=== PATIENT | female | born 1960 | race African-American/Black ===

== ENCOUNTER 2016-12-17 08:38 | Day surgery (SDC) | payer BC, OTHER ==
[2016-12-16 12:11] VITALS: BMI 34.2
[2016-12-17 09:13] LABS: MCH 28.5 pg (25.7-33.7); MCHC 32.4 g/dl (32.0-36.0); MEAN CELL VOLUME 87.7 fl (80-96); MEAN PLT VOLUME 8.4 fl (7.5-11.1); PLATELET COUNT 234 K/MM3 (134-434); RDW 13.1 % (11.6-15.6)
[2016-12-17] MEDS ORDERED: MIDAZOLAM HCL 2 MG/2 ML SINGLE DOSE VIAL ONE ×2 (10:26)
[2016-12-17] MEDS ORDERED: IBUPROFEN 400 MG TABLET (FP) PO PRN (10:39)
[2016-12-17] MEDS ORDERED: ACETAMINOPHEN 325 MG TABLET (FP) PO PRN (10:39)
[2016-12-17] MEDS ORDERED: ONDANSETRON 4 MG/2 ML VIAL IVPB PRN (10:39)
--- NOTE | 2016-12-17 10:47 | HP ---
Admitting History and Physical - Admission History of Present Illness: 56 yo postmenopausal woman with postmenopausal bleeding last year. She underwent an ultrasound which revealed a thickened endometrium suspicious of polyp. She opted for surgical management. She was supposed to have a hysteroscopy D&C last year but procedure was cancelled. She denies any recent PMB. History Source: Patient - Past Medical History Cardiovascular: No: HTN ...LMP Comment: postmenpausal ...: No - Past Surgical History Additional Past Surgical History: Eye surgery CD - Smoking History Smoking history: Never smoked Have you smoked in the past 12 months: No Aproximately how many cigarettes per day: 0 - Alcohol/Substance Use Hx Alcohol Use: Yes (rarely) - Social History History of Recent Travel: No Home Medications - Allergies Allergies/Adverse Reactions: Allergies Allergy/AdvReac Type Severity Reaction Status Date / Time No Known Allergies Allergy Verified 12/16/16 12:10 - Home Medications Home Medications: Ambulatory Orders Cyclobenzaprine HCl 10 mg PO PRN PRN 12/16/16 Ibuprofen 800 mg PO PRN PRN 12/16/16 Family Disease History - Family Disease History Family History: Denies Review of Systems - Review of Systems Constitutional: reports: No Symptoms Cardiovascular: reports: No Symptoms Respiratory: reports: No Symptoms Gastrointestinal: reports: No Symptoms Genitourinary: reports: No Symptoms Integumentary: reports: No Symptoms Endocrine: reports: No Symptoms Physical Examination Vital Signs: Vital Signs Temperature 98.1 F 12/17/16 09:09 Pulse Rate 70 12/17/16 09:09 Respiratory Rate 18 12/17/16 09:09 Blood Pressure O2 Sat by Pulse Oximetry (%) 99 12/17/16 09:12 Constitutional: Yes: Well Nourished, No Distress, Calm Cardiovascular: Yes: Regular Rate and Rhythm Respiratory: Yes: Regular, CTA Bilaterally Gastrointestinal: Yes: Normal Bowel Sounds, Soft Labs: CBC, BMP 12/17/16 08:52 Imaging - Results Ultrasound: Report Reviewed (A Gynecology Report was performed on [facility] on 11/27/2015. The exam was done to evaluate a history of Bleeding-Postmenopausal, Polyp-Cervical. The uterus was Anteverted and appears diffusely heterogenous. No focal masses are seen. The Uterus measured L-73mm W -39mm H-31mm with a volume of 46 cc. The Endometrium measured 6.90 mm and is thickened with a cystic component. The right ovary measured L-19mm W-14mm H-14mm. The left ovary measured L-19mm W-18mm H-11mm. There were no adnexal masses or free fluid seen.), Other Assessment/Plan 56 yo PMB, endometrial polyp 1. Consents reviewed and signed, reviewed risks including infection, bleeding, damage to surrounding organs such as bowel, bladder, uterine perforation. Written consent obtained 2. SCDs for DVT prophylaxis 3. Will proceed to OR
[2016-12-17] MEDS ORDERED: SUCCINYLCHOLINE CHLORIDE 200 MG/10 ML VIAL ONE (10:49)
[2016-12-17] MEDS ORDERED: PROPOFOL 20 ML ONE ×4 (10:49)
[2016-12-17] MEDS ORDERED: ceFAZolin SODIUM 1 GM VIAL IVPB ONE (11:13)
[2016-12-17] MEDS ORDERED: PROMETHAZINE HCL 25 MG/1 ML VIAL IVPUSH PRN (11:32)
--- NOTE | 2016-12-17 11:35 | OP ---
Operative Note - Note: Operative Date: 12/17/16 Pre-Operative Diagnosis: postmenopausal bleeding, endometrial polyp Operation: hysteroscopy, dilation and curettage, polypectomy Findings: uterus sounded to 8 cm, uterine perforation noted, procedure aborted, large cervical polyp Post-Operative Diagnosis: Same as Pre-op Surgeon: Dori Rangel Anesthesiologist/SAMPLE PATTERNMAKER: Wilver Peguero Anesthesia: MAC Estimated Blood Loss (mls): 1 Drains, Volume Out (mls): 200 (fluid deficit) Fluid Volume Replaced (mls): 700 Operative Report Dictated: Yes
[2016-12-17] MEDS ORDERED: LACTATED RINGERS SOLUTION 1,000 ML IV SCH (11:45)
[2016-12-17 12:04] LABS: MCH 28.3 pg (25.7-33.7); MCHC 32.2 g/dl (32.0-36.0); MEAN CELL VOLUME 87.8 fl (80-96); MEAN PLT VOLUME 8.3 fl (7.5-11.1); PLATELET COUNT 201 K/MM3 (134-434); RDW 13.1 % (11.6-15.6)
[2016-12-17 13:07] VITALS: TEMP 97.4
--- NOTE | 2016-12-17 13:23 | OP ---
DATE OF OPERATION: 12/17/2016 ATTENDING PHYSICIAN RESPONSIBLE TO SIGN REPORT: Katya Rangel MD PREOPERATIVE DIAGNOSIS: Endometrial polyp and postmenopausal bleeding. POSTOPERATIVE DIAGNOSIS: Endometrial polyp and postmenopausal bleeding. OPERATION: Hysteroscopy, dilation and curettage, and polypectomy. SURGEON: Katya Rangel MD ANESTHESIOLOGIST: Dr. Peguero ANESTHESIA: MAC. INTRAVENOUS FLUIDS GIVEN: 700 mL. ESTIMATED BLOOD LOSS: Less than 5 mL. FLUID DEFICIT: 200. INDICATIONS: Patient is a 56-year-old postmenopausal woman who presented with postmenopausal bleeding. She was found to have a large polyp extending into the endometrial canal. She was counseled regarding risks, benefits, alternatives, and complications of the procedure including infection, bleeding, damage to surrounding organs such as bowel, bladder, ureters. She expressed understanding and was brought to the operating room. DESCRIPTION OF PROCEDURE: When anesthesia was found to be adequate, patient was prepped and draped in a normal sterile fashion, placed in dorsal lithotomy position using Chip stirrups. A weighted speculum was placed into the posterior portion of the patients vagina. The anterior lip of the cervix was grasped using an Allis clamp. A large cervical polyp was noted, and the cervix was gently dilated to accommodate a size 17 Jayme dilator. Uterine sound revealed an 8-cm endometrial cavity. A hysteroscope was placed under direct visualization, and it was noted that a uterine perforation was noted. No bleeding was noted. Hysteroscopy was aborted. The cervical polyp was removed using polyp forceps and endocervical curetting was performed. All instruments were removed from the patients vagina. The patient was awakened from anesthesia and brought to the recovery room in stable condition. KATYA RANGEL M.D. [id number]
[2016-12-17 15:56] LABS: MCH 28.7 pg (25.7-33.7); MCHC 32.8 g/dl (32.0-36.0); MEAN CELL VOLUME 87.6 fl (80-96); MEAN PLT VOLUME 8.5 fl (7.5-11.1); PLATELET COUNT 200 K/MM3 (134-434); RDW 12.9 % (11.6-15.6); WHITE BLOOD COUNT 5.3 K/mm3 (4.0-10.0)
--- NOTE | 2016-12-17 16:43 | PN ---
Progress Note (short form) - Note Progress Note: Patient seen and examined at bedside. No complaints. Mild spotting, no pain. No nausea or vomiting. Voidings, passing flatus 12/17/16 12/17/16 12:45 13:00 Temperature 97.4 F L Pulse Rate 54 L Respiratory 20 Rate Blood Pressure 132/70 GEN: NAD CHEST: RRR,CTAB ABD: Soft, NT, ND PRIVATE PILOT: Scant VB Laboratory Tests 12/17/16 12/17/16 12/17/16 08:52 11:59 15:30 Hgb 13.0 12.3 12.1 Hct 40.1 38.1 37.1 56 yo s/p hysteroscopy, D&C/polypectomy, aborted secondary to uterine perforation, no signs of bleeding, no pain 1. Patient stable for DC home 2. Will give metronidazole PO BID x 7 d 3. No pain at this time 4. Will make close follow up in office 5. Precautions reviewed
[2016-12-17 17:31] VITALS: BP 146/90; PULSE 63
--- NOTE | 2016-12-18 13:02 | PATH ---
Surgical Pathology Report Patient Name: [facility]MINA [facility]. Rec. #: [id number] /Age/Gender: 1960 (Age: 56) / F Account: [id number] Location: [facility] SURGICAL Taken: 12/17/2016 Received: 12/17/2016 Reported: 12/18/2016 Physicians: Dori Rangel Specimen(s) Received A: ENDOCERVICAL CURETTINGS B: ENDOCERVICAL POLYP Clinical History Postmenopausal bleeding, endometrial polyp Final Diagnosis A. ENDOCERVIX, CURETTAGE: FRAGMENTS OF BENIGN ENDOCERVICAL TISSUE. SCANT FRAGMENTS OF BENIGN SQUAMOUS EPITHLIUM. FRAGMENTS OF BENIGN INACTIVE APPEARING ENDOMETRIUM. B. ENDOCERVICAL POLYP, POLYPECTOMY: BENIGN CERVICAL POLYP WITH MIXED ENDO- AND ECTOCERVICAL FEATURES. Electronically Signed Aaron Dugan M.D. Gross Description A. Received in formalin, labeled "endocervical curettings" is a 2.0 x 2.0 x 0.3 cm in aggregate site fragments of albright-pink soft tissue admixed with mucus and blood. The specimen is submitted in toto in one cassette. B. Resection formalin, labeled "cervical polyp" is a 2.1 x 1.2 x 0.3 cm polypoid fragment of albright-red tissue. Submitted entirely in one cassette. AF/12/17/2016 final/12/17/2016
== END 2016-12-17 17:33 | disposition home or self-care (01) ==
LOC: JASU-SURG 08:38
PROVIDERS: ATTEND Obstetrics & Gynecology
PROC: 0UB98ZX Excision of Uterus, Via Natural or Artificial Opening Endoscopic, Diagnostic (ICD-10-PCS; principal; 2016-12-17 10:30)
PROC: 0UDB8ZX Extraction of Endometrium, Via Natural or Artificial Opening Endoscopic, Diagnostic (ICD-10-PCS; 2016-12-17 10:30)
DX: N92.1 Excessive and frequent menstruation with irregular cycle (principal); N84.0 Polyp of corpus uteri
CPT/HCPCS: 36415; 85027; 88305-TC; 94760

== ENCOUNTER 2017-05-31 16:39 | Emergency (ER) | payer BC, OTHER ==
[2017-05-31 17:21] VITALS: BP 143/86; PULSE 61; TEMP 98.1; BMI 34.0
--- NOTE | 2017-05-31 18:13 | PDOC ---
History of Present Illness - General Chief Complaint: Headache Stated Complaint: HEADACHE Time Seen by Provider: 05/31/17 17:26 History Source: Patient Exam Limitations: No Limitations - History of Present Illness Initial Comments: 05/31/17 18:08 57 y/o female with c/o intermittent rt sided sharp pain x 6 months after she sustained a fall while standing in November. Pt states was going up steps when she missed the 1st step causing her fall backwards striking the cement. Pt denied LOC or dizziness following incident. Pt states motrin does alleviate the pain but concerned because sharp pain returns without aggravating factors. Pt states did not see her PMD for this but decided to come to the ED for evaluation and imaging. Pt states hx of cervical radiculopathy. Timing/Duration: reports: other (intermittent) Severity: Yes: mild Associated Symptoms: denies: vision changes Past History - Travel Traveled outside of the country in the last 30 days: No - Past Medical History Allergies/Adverse Reactions: Allergies Allergy/AdvReac Type Severity Reaction Status Date / Time No Known Allergies Allergy Verified 05/31/17 17:16 Home Medications: Ambulatory Orders Cyclobenzaprine HCl 10 mg PO PRN PRN 12/16/16 Ibuprofen 800 mg PO PRN PRN 12/16/16 Metronidazole 500 mg PO BID #14 tablet 12/17/16 Anemia: No Asthma: No Cancer: No Cardiac Disorders: No CVA: No COPD: No CHF: No Dementia: No Diabetes: Yes (borderline) GI Disorders: Yes (gerd) Disorders: No HTN: Yes (borderline) Hypercholesterolemia: Yes (boderline) Liver Disease: No Seizures: No Thyroid Disease: No - Surgical History Abdominal Surgery: No Appendectomy: No Cardiac Surgery: No Cholecystectomy: No Lung Surgery: No Neurologic Surgery: No Orthopedic Surgery: No - Immunization History Immunization Up to Date: Yes - Suicide/Smoking/Psychosocial Hx Smoking Status: No Smoking History: Never smoked Have you smoked in the past 12 months: No Number of Cigarettes Smoked Daily: 0 Hx Alcohol Use: Yes (rarely) Drug/Substance Use Hx: No Substance Use Type: None Hx Substance Use Treatment: No Patient Lives Alone: No Lives with/in: spouse/SO Neuro Specific PMHX - Complaint Specific PMHX Migraine: No Review of Systems - Review of Systems Able to Perform ROS?: No Constitutional: No: Symptoms Reported HEENTM: No: Symptoms Reported Respiratory: No: Symptoms reported Cardiac (ROS): No: Symptoms Reported ABD/GI: No: Symptoms Reported : No: Symptoms Reported Musculoskeletal: No: Symptoms Reported Integumentary: No: Symptoms Reported Neurological: Yes: Headache. No: Numbness, Paresthesia, Weakness, Dizziness Endocrine: No: Symptoms Reported Hematologic/Lymphatic: No: Symptoms Reported *Physical Exam - Vital Signs Last Vital Signs Temp Pulse Resp BP Pulse Ox 98.1 F 61 20 143/86 97 05/31/17 17:16 05/31/17 17:16 05/31/17 17:16 05/31/17 17:16 05/31/17 17:16 - Physical Exam General Appearance: Yes: Nourished, Appropriately Dressed. No: Apparent Distress HEENT: positive: EOMI, BETITO. negative: Pale Conjunctivae Neck: positive: Supple. negative: Tender, Decreased range of motion Respiratory/Chest: positive: Lungs Clear, Normal Breath Sounds. negative: Respiratory Distress, Accessory Muscle Use Cardiovascular: positive: Regular Rhythm, Regular Rate. negative: Murmur Gastrointestinal/Abdominal: positive: Soft. negative: Tenderness Extremity: positive: Normal Capillary Refill. negative: Pedal Edema Integumentary: positive: Normal Color, Warm, Moist Neurologic: positive: Normal Mood/Affect, Motor Strength 5/5 (ambulatory) ED Treatment Course - RADIOLOGY Radiology Studies Ordered: Category Date Time Status HEAD CT WITHOUT CONTRAST [CT] Stat CT Scan 05/31/17 18:02 Ordered Medical Decision Making - Medical Decision Making 05/31/17 18:13 Pt with intermittent headache x 6 months. Pt had no acute findings or neurofocal deficits on exam. Pt ordered fro CT to r/o intracranial mass, unlikely bleed. Pt on no anticoagulation therapy. Pt offered for motrin but denies pain presently.
--- NOTE | 2017-05-31 19:43 | PDOC ---
*Physical Exam - Vital Signs Last Vital Signs Temp Pulse Resp BP Pulse Ox 98.1 F 61 20 143/86 97 05/31/17 17:16 05/31/17 17:16 05/31/17 17:16 05/31/17 17:16 05/31/17 17:16 Medical Decision Making - Medical Decision Making 05/31/17 19:38 Patient was endorsed to me to follow head CT scan and disposition. Ambulated to the desk complaining still complaint of pain/headache, however doesn't want any pain medication and she just wants to know the results of her scan. Patient Name: CARMINA POWERS THIS IS A PRELIMINARY REPORT FROM [facility] DATE OF SERVICE: 2017-05-31 18:45:04 IMAGES: 209 EXAM: CT head without contrast HISTORY: 57-year-old female headache. COMPARISON: None. FINDINGS: No acute intracranial hemorrhage mass effect or midline shift. Mild mineralization of the bilateral basal ganglia on axial image 12 and 13. Dawkins- white differentiation is maintained. Ventricles sulci and basilar cisterns appear unremarkable. Calvarium is intact. The sinuses and mastoid air cells are clear. IMPRESSION: No acute intracranial hemorrhage mass effect or midline shift. Mild mineralization of the bilateral basal ganglia. If clinically indicated followup outpatient MRI brain may be needed. This CT exam was performed using one or more of the following dose reduction techniques: automated exposure control, adjustment of the mA and/or kV according to patient size, use of iterative reconstruction technique. THIS DOCUMENT HAS BEEN ELECTRONICALLY SIGNED Wilfrid Crum MD 05/31/2017 19:08 MARIBEL M.D. Please call Imaging Practice Advisor [phone] ([phone]) with questions. INTERPRETING RADIOLOGIST: Wilfrid Crum MD Electronically Signed: May 31, 2017 07:11PM CT results discussed with the patient and instructed to follow-up with neurology. I discussed the physical exam findings, ancillary test results and final diagnoses with the patient. I answered all of the patient's questions. The patient was satisfied with the care received and felt comfortable with the discharge plan and treatment plan. The Patient agrees to follow up with the primary care physician within 24-72 hours. *DC/Admit/Observation/Transfer Diagnosis at time of Disposition: Headache Qualifiers: Headache type: unspecified Headache chronicity pattern: episodic headache Intractability: not intractable Qualified Code(s): R51 - Headache - Discharge Dispostion Disposition: HOME Condition at time of disposition: Stable - Referrals Referrals: Amrit Laboy MD [Primary Care Provider] - Ernesto Weems MD [Staff Physician] - - Patient Instructions Printed Discharge Instructions: DI for Migraine Additional Instructions: Your Discharge Instructions: You must call primary care physician within 24 hours to arrange follow-up. Return to the Emergency Department with any new, persistent or worsening symptoms, for fever, chills, SOB, dizziness or any other concerning changes that may occur. He was follow-up with neurology in a timely fashion. - Post Discharge Activity Forms/Work/School Notes: Back to Work
== END 2017-05-31 20:03 | disposition home or self-care (01) ==
LOC: JER 16:39
DX: R51 Headache (principal); I10 Essential (primary) hypertension; E78.00 Pure hypercholesterolemia, unspecified; E11.9 Type 2 diabetes mellitus without complications; K21.9 Gastro-esophageal reflux disease without esophagitis
CPT/HCPCS: 70450-TC; 99281-25

== ENCOUNTER 2021-03-02 14:45 | Emergency (ER) | payer BC, OTHER ==
[2021-03-02 15:20] VITALS: BP 141/78; PULSE 63; TEMP 97.2; BMI 35.0
[2021-03-02] MEDS ORDERED: IBUPROFEN 600 MG TABLET (FP) PO ONE (18:26)
== END 2021-03-02 18:45 | disposition home or self-care (01) ==
LOC: JER 14:45
DX: L02.414 Cutaneous abscess of left upper limb (principal)
CPT/HCPCS: 99283-25

== ENCOUNTER 2022-07-10 20:05 | Emergency (ER) | payer BC, OTHER ==
[2022-07-10 20:20] VITALS: BP 147/79; PULSE 58; RESP 18; TEMP 97.9; BMI 34.5
[2022-07-10] MEDS ORDERED: KETOROLAC TROMETHAMINE 30 MG/1 ML VIAL IM ONE (23:00)
[2022-07-10] MEDS ORDERED: KETOROLAC TROMETHAMINE 30 MG/1 ML VIAL ONE (23:35)
== END 2022-07-11 00:24 | disposition home or self-care (01) ==
LOC: JER 20:05
PROC: 3E023GC Introduction of Other Therapeutic Substance into Muscle, Percutaneous Approach (ICD-10-PCS; principal; 2022-07-10)
DX: M79.651 Pain in right thigh (principal)
CPT/HCPCS: 93971-TC; 99284-25

== ENCOUNTER 2022-07-30 11:17 | Emergency (ER) | payer BC, OTHER ==
[2022-07-30 11:25] VITALS: BP 131/101; PULSE 67; RESP 18; TEMP 98.3; BMI 33.6
[2022-07-30] MEDS ORDERED: diazePAM 5 MG TABLET PO ONE (13:01)
[2022-07-30] MEDS ORDERED: LIDOCAINE 5% TOPICAL PATCH TP ONE (13:01)
[2022-07-30] MEDS ORDERED: KETOROLAC TROMETHAMINE 30 MG/1 ML VIAL IM ONE (13:01)
[2022-07-30] MEDS ORDERED: LIDOCAINE 5% TOPICAL PATCH ONE ×2 (13:12→13:27)
[2022-07-30] MEDS ORDERED: KETOROLAC TROMETHAMINE 30 MG/1 ML VIAL ONE (13:12)
[2022-07-30] MEDS ORDERED: diazePAM 5 MG TABLET ONE (13:12)
[2022-07-30] MEDS ORDERED: LIDOCAINE PATCH REMOVAL MC ONE (22:00)
== END 2022-07-30 15:50 | disposition home or self-care (01) ==
LOC: JER 11:17
PROC: 3E023GC Introduction of Other Therapeutic Substance into Muscle, Percutaneous Approach (ICD-10-PCS; principal; 2022-07-30)
DX: M54.31 Sciatica, right side (principal); M79.604 Pain in right leg; M79.18 Myalgia, other site
CPT/HCPCS: 72100-TC-FY; 99284-25

== ENCOUNTER 2023-05-10 19:38 | Inpatient (IN) | payer OTHER, BC ==
[2023-05-10 19:43] VITALS: BMI 35.4
[2023-05-10] MEDS ORDERED: ACETAMINOPHEN 500 MG TABLET (FP) PO ONE (20:28)
[2023-05-10] MEDS ORDERED: MAG HYDROX/AL HYDROX/SIMETH 30 ML UNIT-DOSE CUP PO ONE (20:29)
[2023-05-10] MEDS ORDERED: FAMOTIDINE 20 MG/50 ML IVPB 20 MG/50 ML MG IVPB ONE ×2 (20:29→20:39)
[2023-05-10] MEDS ORDERED: ACETAMINOPHEN 1000 MG/100 ML BAG IVPB ONE (20:34)
[2023-05-10] MEDS ORDERED: MAG HYDROX/AL HYDROX/SIMETH 30 ML UNIT-DOSE CUP ONE (20:39)
[2023-05-10] MEDS ORDERED: ACETAMINOPHEN INJECTION 100 ML IVPB ONE (20:39)
[2023-05-10 21:22] LABS: BASO % 0.5 % (0-2.0); EOS % 1.6 % (0-4.5); HEMATOCRIT 41.6 % (32.4-45.2); HEMOGLOBIN 13.5 GM/dL (10.7-15.3); LYMPH % 27.6 % (8-40); MCH 28.8 pg (25.7-33.7); MCHC 32.5 g/dl (32.0-36.0); MEAN CELL VOLUME 88.5 fl (80-96); MEAN PLT VOLUME 8.3 fl (7.5-11.1); MONO % 6.9 % (3.8-10.2); NEUT % 63.4 % (42.8-82.8); PLATELET COUNT 235 10^3/uL (134-434); RDW 13.3 % (11.6-15.6); WHITE BLOOD COUNT 7.7 K/mm3 (4.0-10.0)
[2023-05-10 21:29] LABS: POTASSIUM 3.9 mmol/L (3.5-5.1)
[2023-05-10 21:33] LABS: ALBUMIN 3.2 g/dl (3.4-5.0); BLOOD UREA NITROGEN 14.2 mg/dL (7-18); MAGNESIUM 1.9 mg/dL (1.8-2.4)
[2023-05-10 21:38] LABS: BILIRUBIN,TOTAL 0.4 mg/dL (0.2-1)
[2023-05-10 21:40] LABS: N-TERMINAL BNP 47.4 pg/ml (5-125)
[2023-05-10] MEDS ORDERED: PANTOPRAZOLE SODIUM 40 MG VIAL IVPUSH ONE (22:05)
[2023-05-10] MEDS ORDERED: PANTOPRAZOLE SODIUM 40 MG/100 ML BAG IVPB ONE (22:52)
[2023-05-11] MEDS ORDERED: ACETAMINOPHEN 1000 MG/100 ML BAG IVPB ONE (07:38)
[2023-05-11] MEDS ORDERED: ACETAMINOPHEN INJECTION 100 ML IVPB ONE ×2 (07:59→19:13)
[2023-05-11] MEDS ORDERED: ENOXAPARIN NA (PORCINE) 40 MG/0.4 ML DISP.SYRIN SQ ONE (07:59)
[2023-05-11] MEDS: ENOXAPARIN NA (PORCINE) 40 MG/0.4 ML DISP.SYRIN SQ SCH (10:19)
[2023-05-11] MEDS ORDERED: PANTOPRAZOLE 40 MG TABLET PO ONE (13:03)
[2023-05-11] MEDS: PANTOPRAZOLE 40 MG TABLET PO SCH (13:17)
[2023-05-11] MEDS: ACETAMINOPHEN 1000 MG/100 ML BAG IVPB PRN (19:17)
[2023-05-11] MEDS ORDERED: MELATONIN 5 MG TABLETS ONE (22:48)
[2023-05-11] MEDS: MELATONIN 5 MG TABLETS PO SCH (22:55)
[2023-05-12] MEDS ORDERED: ACETAMINOPHEN INJECTION 100 ML IVPB ONE ×2 (01:32→08:25)
[2023-05-12] MEDS: ACETAMINOPHEN 1000 MG/100 ML BAG IVPB PRN ×2 (01:35→08:36)
[2023-05-12] MEDS ORDERED: GABAPENTIN 100 MG CAPSULE PO ONE (04:14)
[2023-05-12] MEDS ORDERED: ACYCLOVIR 400 MG TABLET PO ONE (04:14)
[2023-05-12] MEDS ORDERED: ACYCLOVIR 200 MG CAPSULE ONE (04:16)
[2023-05-12] MEDS ORDERED: GABAPENTIN 100 MG CAPSULE ONE (04:17)
[2023-05-12] MEDS: ACYCLOVIR 400 MG TABLET PO SCH ×2 (06:04→14:25)
[2023-05-12 08:58] LABS: BASO % 0.5 % (0-2.0); EOS % 2.6 % (0-4.5); HEMATOCRIT 41.1 % (32.4-45.2); HEMOGLOBIN 13.4 GM/dL (10.7-15.3); LYMPH % 31.4 % (8-40); MCHC 32.7 g/dl (32.0-36.0); MEAN CELL VOLUME 88.7 fl (80-96); MEAN PLT VOLUME 8.2 fl (7.5-11.1); MONO % 8.8 % (3.8-10.2); NEUT % 56.7 % (42.8-82.8); PLATELET COUNT 216 10^3/uL (134-434); RBC 4.63 M/mm3 (3.60-5.2); RDW 13.4 % (11.6-15.6); WHITE BLOOD COUNT 5.7 K/mm3 (4.0-10.0)
[2023-05-12] MEDS ORDERED: GABAPENTIN 100 MG CAPSULE PO SCH (10:00)
[2023-05-12] MEDS: ENOXAPARIN NA (PORCINE) 40 MG/0.4 ML DISP.SYRIN SQ SCH (12:17)
[2023-05-12] MEDS: PANTOPRAZOLE 40 MG TABLET PO SCH (12:18)
[2023-05-12] MEDS: ACETAMINOPHEN 325 MG TABLET (FP) PO PRN (14:25)
[2023-05-12] MEDS: ACYCLOVIR 800 MG TABLET PO SCH ×2 (17:50→21:00)
[2023-05-12] MEDS: GABAPENTIN 100 MG CAPSULE PO SCH (21:00)
[2023-05-12] MEDS: MELATONIN 5 MG TABLETS PO SCH (21:00)
[2023-05-13] MEDS: ACETAMINOPHEN 325 MG TABLET (FP) PO PRN (02:13)
[2023-05-13 07:04] LABS: BASO % 0.6 % (0-2.0); EOS % 2.3 % (0-4.5); HEMATOCRIT 40.9 % (32.4-45.2); HEMOGLOBIN 13.6 GM/dL (10.7-15.3); LYMPH % 21.1 % (8-40); MCH 29.5 pg (25.7-33.7); MCHC 33.2 g/dl (32.0-36.0); MEAN CELL VOLUME 88.9 fl (80-96); MEAN PLT VOLUME 8.5 fl (7.5-11.1); MONO % 8.3 % (3.8-10.2); NEUT % 67.7 % (42.8-82.8); PLATELET COUNT 215 10^3/uL (134-434); WHITE BLOOD COUNT 6.7 K/mm3 (4.0-10.0)
[2023-05-13 07:22] LABS: POTASSIUM 3.9 mmol/L (3.5-5.1)
[2023-05-13 07:23] LABS: CALCIUM 8.5 mg/dL (8.5-10.1)
[2023-05-13 07:24] LABS: ALBUMIN 2.9 g/dl (3.4-5.0); BLOOD UREA NITROGEN 14.4 mg/dL (7-18)
[2023-05-13 07:28] LABS: CREATININE 0.9 mg/dL (0.55-1.3)
[2023-05-13 07:29] LABS: BILIRUBIN,TOTAL 0.6 mg/dL (0.2-1); TOT PROT 6.5 g/dl (6.4-8.2)
[2023-05-13] MEDS: ENOXAPARIN NA (PORCINE) 40 MG/0.4 ML DISP.SYRIN SQ SCH (09:43)
[2023-05-13] MEDS: ACYCLOVIR 800 MG TABLET PO SCH ×4 (09:44→22:47)
[2023-05-13] MEDS: PANTOPRAZOLE 40 MG TABLET PO SCH (09:44)
[2023-05-13] MEDS: GABAPENTIN 100 MG CAPSULE PO SCH (22:09)
[2023-05-13] MEDS: MELATONIN 5 MG TABLETS PO SCH (22:10)
[2023-05-14] MEDS: ACYCLOVIR 800 MG TABLET PO SCH (09:52)
[2023-05-14] MEDS: PANTOPRAZOLE 40 MG TABLET PO SCH (09:52)
[2023-05-14] MEDS: ENOXAPARIN NA (PORCINE) 40 MG/0.4 ML DISP.SYRIN SQ SCH (09:52)
[2023-05-14 12:45] VITALS: BP 197/167; PULSE 78; RESP 20; TEMP 97.9
== END 2023-05-14 12:37 | disposition home or self-care (01) | DRG 596 ==
LOC: JER 19:38 → JERBED 05-11 02:07 → OBSVTOIN 05-11 03:38 → J2W 05-12 09:13
PROVIDERS: ADMIT Internal Medicine; ATTEND Internal Medicine
DX: B02.9 Zoster without complications (principal); R07.89 Other chest pain; I10 Essential (primary) hypertension; R73.03 Prediabetes; E78.5 Hyperlipidemia, unspecified; K21.9 Gastro-esophageal reflux disease without esophagitis; K80.20 Calculus of gallbladder without cholecystitis without obstruction; F41.9 Anxiety disorder, unspecified; R10.12 Left upper quadrant pain; E66.9 Obesity, unspecified; Z68.35 Body mass index [BMI] 35.0-35.9, adult
CPT/HCPCS: 0241U-QW; 36415; 71045-TC-FY; 76700-TC; 80053; 82962; 83036; 83735; 83880; 84484; 85025; 93005; 93010; 93306-TC; 99285-25; G0378

== ENCOUNTER 2023-12-03 12:41 | Emergency (ER) | payer OTHER, BC ==
[2023-12-03 13:08] VITALS: BP 120/78; PULSE 69; RESP 16; TEMP 98.6; BMI 34.3
[2023-12-03] MEDS ORDERED: IBUPROFEN 400 MG TABLET (FP) PO ONE (14:12)
[2023-12-03] MEDS: IBUPROFEN 400 MG TABLET (FP) PO ONE (14:14)
[2023-12-03 14:50] LABS: EPI CELLS >36 /uL (0-25.1); HYALINE CASTS 1 /uL (0-3.1); PH,URINE 6.5 (5.0-8.0); URINE APPEARANCE CLEAR; URINE BACTERIA 2316 /uL (0-1359); URINE BILIRUBIN NEGATIVE (NEGATIVE); URINE COLOR YELLOW; URINE GLUCOSE (UA) NEGATIVE (NEGATIVE); URINE KETONE TRACE (NEGATIVE); URINE LEUK ESTERASE 2+ (NEGATIVE); URINE NITRITE NEGATIVE (NEGATIVE); URINE PROTEIN NEGATIVE (NEGATIVE); URINE RBC 33 /uL (0-23.9); URINE UROBILINOGEN 0.2 mg/dL (0.2-1.0); URINE WBC 60 /uL (0-25.8)
== END 2023-12-03 15:47 | disposition home or self-care (01) ==
LOC: JERFT 12:41
DX: N39.0 Urinary tract infection, site not specified (principal); M54.10 Radiculopathy, site unspecified; M79.601 Pain in right arm
CPT/HCPCS: 73030-TC-RT-FY; 81003; 87077; 87086; 99284-25